=== PATIENT | female | born 1990 | race Caucasian/White ===

== ENCOUNTER 2018-02-16 11:54 | Emergency (ER) | payer BC ==
[2018-02-16] MEDS: CLINDAMYCIN 600 MG/D5W (PMX) 50 ML IVPB (12:54)
[2018-02-16] MEDS: DEXAMETHASONE 10 MG/ML 1 ML INJ IV (12:55)
== END 2018-02-16 14:13 | disposition home or self-care (01) ==
LOC: FTE 11:54
DX: L03.211 Cellulitis of face (principal)
CPT/HCPCS: 96365; 96375; 99284-25

== ENCOUNTER 2018-03-10 10:52 | Emergency (ER) | payer BC ==
[2018-03-10] MEDS: MUPIROCIN 2% 22 GM OINT TOP (12:52)
[2018-03-10] MEDS ORDERED: MUPIROCIN 2% 15 GM CR TOP (13:00)
== END 2018-03-10 13:42 | disposition home or self-care (01) ==
LOC: FTE 10:52
DX: J34.0 Abscess, furuncle and carbuncle of nose (principal)
CPT/HCPCS: 99283; Z7502